=== PATIENT | male | born 1975 | race American Indian/Alaskan Native ===

== ENCOUNTER 2018-10-01 08:25 | Emergency (ER) | payer OTHER ==
--- NOTE | 2018-10-01 09:18 | Emergency Department Report ---
ED Dysuria HPI - HPI Chief Complaint: Urogenital-Male Stated Complaint: BLOOD IN URINE Time Seen by Provider: 10/01/18 09:04 Duration: 2 Days Severity: Mild Symptoms: Dysuria: No, Frequency: No, Suprapubic Pain: No, Flank Pain: No, Fever: No, Hematuria: Yes, Abdominal Pain: No, Previous UTI's: No Other History: 43 yo with 2 day hx hematuria. has had kidney stones in the past but they presented with pain. pt reports some diarrhea. no n/v. no pain. no penile dc. afebrile, ambulatory and in no acute distress. ED Review of Systems ROS: Stated complaint: BLOOD IN URINE Other details as noted in HPI Comment: All other systems reviewed and negative Constitutional: denies: chills Eyes: denies: eye pain ENT: denies: ear pain Respiratory: denies: cough Cardiovascular: denies: orthopnea Endocrine: denies: flushing Gastrointestinal: as per HPI, diarrhea. denies: nausea, vomiting Genitourinary: as per HPI, hematuria. denies: discharge Musculoskeletal: denies: back pain Skin: denies: rash Neurological: denies: weakness Psychiatric: denies: anxiety Hematological/Lymphatic: denies: easy bleeding ED Past Medical Hx - Past Medical History Previous Medical History?: Yes Hx Hypertension: Yes Additional medical history: k stones - Medications Home Medications: Home Medications Medication Instructions Recorded Confirmed Last Taken Type Ciprofloxacin HCl [Cipro] 500 mg PO BID #10 tablet 10/01/18 Unknown Rx traMADol [Ultram] 50 mg PO Q6HR PRN #10 tablet 10/01/18 Unknown Rx Dysuria Exam - Exam General: Vital signs noted. No distress. Alert and acting appropriately. Exam: Yes Moist Mucous Membranes, No CVA Tenderness, No Abdominal Tenderness, No Rigidity or Guarding ED Course Vital Signs 10/01/18 08:27 Temperature 98.6 F Pulse Rate 75 Respiratory 16 Rate Blood Pressure 160/97 O2 Sat by Pulse 100 Oximetry ED Medical Decision Making - Lab Data Result diagrams: 10/01/18 Unknown 10/01/18 Unknown - Radiology Data Radiology results: report reviewed cyst. stone in l kidney. no hydro - Medical Decision Making ua noted ct noted no penile discharge no pain no n/v mild diarrhea IVF rocephin and azithromycin dc home on bactrim and urology follow up Labs 10/01/18 10/01/18 10/01/18 Unknown Unknown Unknown WBC 8.3 RBC 5.12 H Hgb 15.8 H Hct 47.1 H MCV 92 MCH 31 MCHC 34 RDW 14.5 Plt Count 184 Sodium 138 Potassium 4.6 Chloride 101.5 Carbon Dioxide 26 Anion Gap 15 BUN 12 Creatinine 1.0 Estimated GFR > 60 BUN/Creatinine Ratio 12 Glucose 96 Calcium 9.5 Urine Color Yellow Urine Turbidity Slightly-cloudy Urine pH 6.0 Ur Specific [place] 1.012 Urine Protein <15 mg/dl Urine Glucose (UA) Neg Urine Ketones Neg Urine Blood Lg Urine Nitrite Neg Urine Bilirubin Neg Urine Urobilinogen 2.0 Ur Leukocyte Esterase Neg Urine WBC (Auto) 34.0 H Urine RBC (Auto) > 182.0 U Epithel Cells (Auto) 1.0 - Differential Diagnosis ro kidney stone Critical care attestation.: If time is entered above; I have spent that time in minutes in the direct care of this critically ill patient, excluding procedure time. ED Disposition Clinical Impression: Renal cyst, Hematuria, Cystitis Disposition: TO HOME OR SELFCARE Is pt being admited?: No Does the pt Need Aspirin: No Condition: Stable Additional Instructions: HYDRATE WELL WITH WATER MEDS ORDERED TODAY FOLLOW UP WITH UROLOGY REFERRAL BELOW DIET TOLERATED ACTIVITY TOLERATED SAFE SEX MOTRIN OR TYLENOL FOR MILD PAIN Prescriptions: Ciprofloxacin HCl [Cipro] 500 mg PO BID #10 tablet traMADol [Ultram] 50 mg PO Q6HR PRN #10 tablet PRN Reason: Pain Referrals: DAHIANA SANTIAGO [Primary Care Provider] - 3-5 Days TANI PANDA MD [Staff Physician] - 3-5 Days Time of Disposition: 11:24
[2018-10-01 09:54] LABS: Hematocrit 47.1 % (35.5-45.6); Hemoglobin 15.8 gm/dl (11.8-15.2); Mean Corpuscular HGB Conc 34 % (32-34); Mean Corpuscular Volume 92 fl (84-94); Platelet Count 184 K/mm3 (140-440); Red Blood Count 5.12 M/mm3 (3.65-5.03); Red Cell Distribution Width 14.5 % (13.2-15.2)
[2018-10-01 10:01] LABS: Bilirubin,Urine NEG (Negative); Blood,Urine LG (Negative); Color,Urine Yellow (Yellow); Protein,Urine <15 mg/dL mg/dL (Negative)
[2018-10-01 10:05] LABS: RBC,Urine > 182.0 /HPF (0.0-6.0)
[2018-10-01 10:06] LABS: BUN/Creatinine Ratio 12; Blood Urea Nitrogen 12 mg/dL (9-20); Calcium 9.5 mg/dL (8.4-10.2); Hemolysis Index 42
[2018-10-01] MEDS ORDERED: NACL 0.9% 1000 ML 1,000 ML IV ONE (10:11)
[2018-10-01] MEDS ORDERED: ROCEPHIN/NS 1 GM/50 ML 1 GM/50 ML BAG IV ONE (10:14)
[2018-10-01] MEDS ORDERED: NACL 0.9% 1000 ML 1,000 ML ONE (10:42)
[2018-10-01] MEDS ORDERED: ROCEPHIN IM ONE (10:55)
[2018-10-01] MEDS ORDERED: NACL 0.9% 50 ML ONE (10:56)
--- NOTE | 2018-10-01 11:21 | Cat Scan Report ---
FINAL REPORT EXAM: CT ABDOMEN PELVIS WO CON HISTORY: flank pain TECHNIQUE: Noncontrast CT of the abdomen and pelvis performed. No IV or gastrointestinal contrast w as administered. Axial images and coronal and sagittal reformatted images were obtained. PRIORS: None. FINDINGS: There is a punctate nonobstructing left intrarenal calculus. There is no hydronephrosis or evidence f or acute obstructive uropathy. There is a 2 cm low-density left renal lesion which is not definitivel y characterized but most likely a small cyst. Within the limitations of a non-enhanced study, the visualized liver, spleen, pancreas, adrenal gland s and right kidney demonstrate no significant abnormalities. There is no abdominal aortic aneurysm. There is no evidence of intestinal obstruction. The appendix is normal. There are no abnormal fluid collections seen. There is no free intraperitoneal air. The bladder is unremarkable. There is no abnormal pelvic mass or fluid collections seen. IMPRESSION: There is a punctate nonobstructing left intrarenal calculus. There is no hydronephrosis or evidence f or acute obstructive uropathy. 2 cm low-density left renal lesion is not definitively characterized but probably is a small cyst.
[2018-10-01] MEDS ORDERED: ZITHROMAX PO ONE (11:23)
[2018-10-01] MEDS ORDERED: ZITHROMAX ONE (11:41)
[2018-10-01 15:23] VITALS: BP 160/97
== END 2018-10-01 12:06 | disposition home or self-care (01) ==
LOC: ED 08:25
DX: N30.01 Acute cystitis with hematuria (principal); N28.1 Cyst of kidney, acquired; I10 Essential (primary) hypertension; Z91.013 Allergy to seafood
CPT/HCPCS: 36415; 74176; 80048; 81001; 85027; 99283; J0696; J7030; 96365

== ENCOUNTER 2018-11-07 11:58 | Emergency (ER) | payer OTHER ==
[2018-11-07 12:06] VITALS: BP 163/101
[2018-11-07] MEDS ORDERED: NACL 0.9% 1000 ML 1,000 ML IV ONE (12:10)
[2018-11-07] MEDS ORDERED: ZOFRAN IV ONE (12:10)
--- NOTE | 2018-11-07 12:15 | Emergency Department Report ---
Blank Doc - Documentation Documentation: 43 y/o male seen at [facility] yesterday dx wtih viral gastroenteritis pre sents to ED "per recommendation of his PCP not seen today" for continued N/V/D and adominal pain
[2018-11-07 12:26] LABS: Basophils # (Auto) 0.1 K/mm3 (0.0-0.1); Basophils % (Auto) 0.9 % (0.0-1.8); Eosinophils # (Auto) 0.1 K/mm3 (0.0-0.4); Eosinophils % (Auto) 0.6 % (0.0-4.3); Hematocrit 41.7 % (35.5-45.6); Hemoglobin 14.3 gm/dl (11.8-15.2); Lymphocytes # (Auto) 2.3 K/mm3 (1.2-5.4); Lymphocytes % (Auto) 19.8 % (13.4-35.0); Mean Corpuscular HGB Conc 34 % (32-34); Mean Corpuscular Volume 91 fl (84-94); Monocytes # (Auto) 0.7 K/mm3 (0.0-0.8); Monocytes % (Auto) 6.1 % (0.0-7.3); Platelet Count 247 K/mm3 (140-440); Red Cell Distribution Width 14.3 % (13.2-15.2)
[2018-11-07 12:49] LABS: Alanine Aminotransferase 21 units/L (7-56); Albumin 4.9 g/dL (3.9-5); BUN/Creatinine Ratio 18; Blood Urea Nitrogen 16 mg/dL (9-20); Calcium 9.7 mg/dL (8.4-10.2); Hemolysis Index 49
[2018-11-07 12:51] LABS: Bilirubin,Direct < 0.2 mg/dL (0-0.2)
--- NOTE | 2018-11-07 13:33 | Emergency Department Report ---
ED Abdominal Pain HPI - General Chief Complaint: Abdominal Pain Stated Complaint: ABD PAIN Time Seen by Provider: 11/07/18 12:09 Source: patient Mode of arrival: Ambulatory Limitations: No Limitations - History of Present Illness Initial Comments: Pt is a 43 yo male who presents to the ED with c/o N/V/D that began yesterday morning. He states he has generalized abdominal pain. He describes the pain as an aching. The patient was seen at [facility] for these symptoms and was diagnosed with gastroenteritis. He has a sick contact with similar sx. He was given zofran and percocet from [facility] and states that he still does not feel better. He denies any fever, hematochezia, hematemesis, or urinary sx. Severity scale (0 -10): 10 - Related Data Previous Rx's Medication Instructions Recorded Last Taken Type Ciprofloxacin HCl [Cipro] 500 mg PO BID #10 tablet 10/01/18 Unknown Rx traMADol [Ultram] 50 mg PO Q6HR PRN #10 tablet 10/01/18 Unknown Rx Allergies Allergy/AdvReac Type Severity Reaction Status Date / Time shrimp Allergy Swelling Verified 11/07/18 11:59 ED Review of Systems ROS: Stated complaint: ABD PAIN Other details as noted in HPI Comment: All other systems reviewed and negative ED Past Medical Hx - Past Medical History Hx Hypertension: Yes Additional medical history: k stones - Social History Smoking Status: Current Every Day Smoker Substance Use Type: None - Medications Home Medications: Home Medications Medication Instructions Recorded Confirmed Last Taken Type Ciprofloxacin HCl [Cipro] 500 mg PO BID #10 tablet 10/01/18 Unknown Rx traMADol [Ultram] 50 mg PO Q6HR PRN #10 tablet 10/01/18 Unknown Rx ED Physical Exam - General Limitations: No Limitations General appearance: alert, in no apparent distress - Head Head exam: Present: atraumatic, normocephalic - Eye Eye exam: Present: normal appearance - ENT ENT exam: Present: mucous membranes moist - Respiratory Respiratory exam: Present: normal lung sounds bilaterally. Absent: respiratory distress, wheezes, rales, rhonchi, stridor, chest wall tenderness, accessory muscle use, decreased breath sounds, prolonged expiratory - Cardiovascular Cardiovascular Exam: Present: regular rate, normal rhythm, normal heart sounds. Absent: systolic murmur, rubs, gallop - GI/Abdominal GI/Abdominal exam: Present: soft, distended (mildly), normal bowel sounds. Absent: tenderness, guarding, rebound, rigid - Neurological Exam Neurological exam: Present: alert, oriented X3 - Psychiatric Psychiatric exam: Present: normal affect, normal mood ED Course Vital Signs 11/07/18 11/07/18 11/07/18 12:03 12:05 13:11 Temperature 97.6 F Pulse Rate 70 Respiratory 16 16 Rate Blood Pressure 163/101 O2 Sat by Pulse 99 Oximetry ED Medical Decision Making - Lab Data Result diagrams: 11/07/18 12:16 11/07/18 12:16 Laboratory Results - last 24 hr 11/07/18 11/07/18 12:16 12:16 WBC 11.4 H RBC 4.60 Hgb 14.3 Hct 41.7 MCV 91 MCH 31 MCHC 34 RDW 14.3 Plt Count 247 Lymph % (Auto) 19.8 Butts % (Auto) 6.1 Eos % (Auto) 0.6 Baso % (Auto) 0.9 Lymph # 2.3 Butts # 0.7 Eos # 0.1 Baso # 0.1 Seg Neutrophils % 72.6 H Seg Neutrophils # 8.3 H Sodium 138 Potassium 3.7 Chloride 98.2 Carbon Dioxide 25 Anion Gap 19 BUN 16 Creatinine 0.9 Estimated GFR > 60 BUN/Creatinine Ratio 18 Glucose 95 Calcium 9.7 Total Bilirubin 0.70 Direct Bilirubin < 0.2 Indirect Bilirubin 0.5 AST 24 ALT 21 Alkaline Phosphatase 59 Total Protein 8.7 H Albumin 4.9 Albumin/Globulin Ratio 1.3 Lipase 80 H - Radiology Data Radiology results: report reviewed, image reviewed CT abd/pelvis with IV contrast: small cyst on the left kidney, tiny non obstructing stones in the bilateral kidneys, otherwise normal - Medical Decision Making Pt presents with N/V/D that began 2 days ago. evaluated at [facility] for the same sx and was given pain medication and nausea medication. CT abd/pelvis with no acute findings besides a small kidney cyst and very tiny stones present in the bilateral kidneys. Advised pt to stay well hydrated and eat a bland diet. Ad vised pt to continue using medications he was already prescribed. Discussed with pt to follow up with PCP in the next 2-3 days. Advised pt to follow up with GI doctor if continues to have N/V/D, generalized abd pain. Return to ED if any new or worsening symptoms. Critical care attestation.: If time is entered above; I have spent that time in minutes in the direct care of this critically ill patient, excluding procedure time. ED Disposition Clinical Impression: Nausea vomiting and diarrhea Abdominal pain Qualifiers: Abdominal location: unspecified location Qualified Code(s): R10.9 - Unspecified abdominal pain Disposition: TO HOME OR SELFCARE Is pt being admited?: No Does the pt Need Aspirin: No Condition: Stable Instructions: Acute Nausea and Vomiting (ED), Abdominal Pain (ED) Additional Instructions: Follow up with your primary care doctor in the next 2-3 days. Follow up with GI doctor if continue to have abdominal pain. Keep well hydrated. Eat a bland diet. Referrals: [facility] [Other] - 2-3 Days LILLIANA BARTON MD [Staff Physician] - 3-5 Days Time of Disposition: 14:46 Print Language: MALTESE
[2018-11-07] MEDS ORDERED: TORADOL IV ONE (13:40)
--- NOTE | 2018-11-07 14:23 | Cat Scan Report ---
CT ABDOMEN PELVIS WITH CONTRAST: HISTORY: Generalized abdominal pain. Nausea, vomiting and diarrhea. COMPARISON: 10/01/18. TECHNIQUE: Helical CT in 1.25mm intervals following IV contrast. Sagittal and coronal reconstructions. FINDINGS: Lung bases: Normal. Liver: Normal. Biliary system: Normal. Pancreas: Normal. Spleen: Normal. Kidneys/ureters/bladder: The kidneys are normal size and position. A 2 cm cyst is identified at the superior pole of the left kidney. There appear to be tiny nonobstructing calyceal stones at the inferior pole of both kidneys. The ureters and bladder are unremarkable. Adrenal glands: Normal. Aorta: Normal. Intestines: Normal. Appendix: Normal. Pelvic viscera: Normal. Ascites: None. Adenopathy: None. Musculoskeletal: Normal. IMPRESSION: No acute abdominal process is identified. Tiny bilateral renal calyceal stones. Left renal cyst.
== END 2018-11-07 14:58 | disposition home or self-care (01) ==
LOC: ED 11:58
DX: R10.9 Unspecified abdominal pain (principal); R11.2 Nausea with vomiting, unspecified; R19.7 Diarrhea, unspecified; I10 Essential (primary) hypertension; F17.200 Nicotine dependence, unspecified, uncomplicated
CPT/HCPCS: 36415; 74177; 80048; 80076; 83690; 85025; 96361; 96374; 96375; 99284; J1885; J2405; J7030; Q9967

== ENCOUNTER 2018-12-13 10:24 | Day surgery (SDC) | payer OTHER ==
[~2018-12-13 10:24] MED LIST: DIPRIVAN 10 MG/ML IV ONE; NACL 0.9% 1000 ML 1,000 ML IV SCH
--- NOTE | 2018-12-13 12:11 | Short Stay Summary ---
Short Stay Documentation Date of service: 12/13/18 Narrative H&P: Mr Butler is a 43 yo male who presents for EGD 2/2 abdominal pain, dysphagia, and reflux. Dysphagia and reflux sx's have improved with PPI. no weight loss, or gi bleeding. - History Past Medical History: other (see clinic note) Past Surgical History: No surgical history Social history: no significant social history - Allergies and Medications Current Medications: Allergies shrimp Allergy (Verified 11/07/18 11:59) Swelling Home Medications Medication Instructions Recorded Confirmed Last Taken Type Lisinopril/Hydrochlorothiazide 20 mg PO DAILY 12/12/18 12/13/18 12/13/18 History amLODIPine 1 tab PO DAILY 12/12/18 12/13/18 12/13/18 History Prilosec 20 mg PO DAILY 12/13/18 12/13/18 12/10/18 History Active Medications Sodium Chloride (Nacl 0.9% 1000 Ml) 1,000 mls @ 50 mls/hr IV DIRECT AFSANEH Last Admin: 12/13/18 11:04 Dose: 50 mls/hr Documented by: - Physical exam General appearance: no acute distress Lungs: Clear to auscultation Heart: Regular rate, Normal S1, Normal S2 Gastrointestinal: normal Extremities: No edema - Brief post op/procedure progress note Date of procedure: 12/13/18 Pre-op diagnosis: Abdominal pain, GERD Post-op diagnosis: same (Gastritis, biopsied.) Procedure: EGD with biopsies Anesthesia: MAC Findings: Mild erythematous mucosa in gastric body. Biopsied obtained to rule out H pylori. otherwise normal upper endoscopy Surgeon: ROBYN ROSE Estimated blood loss: minimal Pathology: list (Senthil Cuevas - gastric biopsies) Specimen disposition: to lab Condition: stable - Disposition Condition at discharge: Good Disposition: DC-01 TO HOME OR SELFCARE Short Stay Discharge Plan Follow up with: JERICA DUKE MD [Primary Care Provider] - 7 Days
--- NOTE | 2018-12-13 12:15 | Operative Report ---
Operative Report Operative Report: Esophagogastroduodenoscopy Procedure Note with Biopsies Date of procedure: 12/13/2018 Endoscopist: Montrell Boggs Pre-op diagnosis: Post-op diagnosis: Anesthesia: MAC Complications: No immediate complications Estimated blood loss: minimal Procedure: After consent was obtained, the patient was placed in the left lateral decubitus position. The fujinon endoscope was inserted into the patient's mouth under direct vision, and advanced into the 2nd portion of the duodenum without difficulty. The patient tolerated the procedure well. The views of the mucosa were good. Patient's vital signs were monitored continuously throughout the procedure. Findings: The esophagus appeared normal. There was mild erythematous mucosa in the body of the stomach. Otherwise, the stomach appeared normal. Biopsies were obtained to rule out H pylori. The duodenum appeared normal. Impression: 1. Mild erythematous mucosa in the gastric body. Biopsies obtained. Otherwise, unremarkable upper endoscopy. Recommendations: -follow-up pathology -avoid nsaid medication -continue anti-acid medication daily
[2018-12-13] MEDS ORDERED: WATER FOR IRRIG STERILE IR ONE (12:17)
[2018-12-13 12:55] VITALS: BP 118/81
== END 2018-12-13 10:25 | disposition home or self-care (01) ==
LOC: GIO 10:24
PROVIDERS: ATTEND Internal Medicine Gastroenterology
DX: K29.50 Unspecified chronic gastritis without bleeding (principal); F17.210 Nicotine dependence, cigarettes, uncomplicated; I10 Essential (primary) hypertension; Z79.899 Other long term (current) drug therapy; Z79.01 Long term (current) use of anticoagulants; Z88.8 Allergy status to other drugs, medicaments and biological substances
CPT/HCPCS: 43239; 88305; 88342; J2704; J7030

== ENCOUNTER 2019-01-24 05:47 | Emergency (ER) | payer OTHER ==
[2019-01-24 06:22] LABS: Basophils % (Auto) 0.3 % (0.0-1.8); Eosinophils % (Auto) 0.4 % (0.0-4.3); Hematocrit 39.6 % (35.5-45.6); Hemoglobin 13.5 gm/dl (11.8-15.2); Lymphocytes % (Auto) 20.3 % (13.4-35.0); Mean Corpuscular HGB Conc 34 % (32-34); Mean Corpuscular Volume 93 fl (84-94); Monocytes # (Auto) 0.5 K/mm3 (0.0-0.8); Monocytes % (Auto) 5.3 % (0.0-7.3); Platelet Count 216 K/mm3 (140-440); Red Blood Count 4.28 M/mm3 (3.65-5.03)
[2019-01-24 06:39] LABS: Albumin 5.1 g/dL (3.9-5); Calcium 10.2 mg/dL (8.4-10.2)
[2019-01-24] MEDS ORDERED: NACL 0.9% 1000 ML 1,000 ML IV ONE (07:18)
[2019-01-24 07:47] VITALS: BP 126/72
--- NOTE | 2019-01-24 08:03 | Emergency Department Report ---
Vomiting/Diarrhea - HPI Chief Complaint: Nausea/Vomiting/Diarrhea Stated Complaint: VOMITING,WEAK Time Seen by Provider: 01/24/19 08:02 Severity: mild Nausea/Vomiting Severity: Mild Diarrhea Severity: None Pain Severity: None Symptoms: No Watery Diarrhea, No Bloody diarrhea, No Fever, No Able to Tolerate Fluids, No Recent Unusual Foods, No Recent Untreated Water, No Recent use of Antibiotics, No Family w/ Similar Symptoms, No Contacts w/ Similar Symptoms, No Rash, No Hematuria, No Recent URI Symptoms Other History: Patient is a 43-year-old male who comes to the ER today with nausea and vomiting. He states that he was seen over a week ago at [facility] for the same symptoms. They told him it was related to his marijuana use and that he should stop smoking marijuana. Patient states that he has had no Nausea and vomiting. He denies fever. He denies pain. He denies any diarrhea. He is actively vomiting on exam. He has come in by his and mother. Pt states that [place] they told him that he was dehydrated and his kidney function was affected. They sent him home with some cream he cannot recall the name of. He states that it has not helped. Pt is on no home medications other than the cream that was given to him at [facility]. Review the MR indicates the patient should be on blood pressure medicine. ED Review of Systems ROS: Stated complaint: VOMITING,WEAK Other details as noted in HPI Comment: All other systems reviewed and negative ED Past Medical Hx - Past Medical History Previous Medical History?: Yes Hx Hypertension: Yes Additional medical history: k stones - Surgical History Past Surgical History?: No - Family History Family history: no significant - Social History Smoking Status: Current Every Day Smoker - Medications Home Medications: Home Medications Medication Instructions Recorded Confirmed Last Taken Type Lisinopril/Hydrochlorothiazide 20 mg PO DAILY 12/12/18 12/13/18 12/13/18 History amLODIPine 1 tab PO DAILY 12/12/18 12/13/18 12/13/18 History Prilosec 20 mg PO DAILY 12/13/18 12/13/18 12/10/18 History Capsaicin 0.075% [Zostrix Hp 1 applicatio TP TID #1 tube 01/24/19 Unknown Rx 0.075%] Ondansetron [Zofran Odt] 4 mg PO Q8HR PRN #10 tab.padmajadis 01/24/19 Unknown Rx Vomiting Diarrhea Exam - Exam General: Vital signs noted. No distress. Alert and acting appropriately. HEENT: No Pharyngeal Erythema Neck: No Adenopathy Lungs: Yes Clear Lung Sounds, Yes Good Air Exchange Heart exam: Regular: Yes, Tachycardia: No Abdomen: Tenderness: No, Peritoneal Signs: No, Distention: No, Hyperactive Bowel sounds: No Skin exam: Rash: No Neurologic: Alert and oriented, no deficits. Musculoskeletal: Unremarkable. Exam: Head. Head exam: Present: atraumatic, normocephalic. - Eye. Eye exam: Present: normal appearance, EOMI. Absent: nystagmus. - ENT. ENT exam: Present: normal exam, normal orophraynx, mucous membranes moist, normal external ear exam, no lymphadenopathy. - Neck. Neck exam: Present: normal inspection, full ROM. Absent: tenderness, meningismus. - Respiratory. Respiratory exam: Present: normal lung sounds bilaterally. Absent: respiratory distress, wheezes, rales, rhonchi, stridor, chest wall tenderness, accessory muscle use, decreased breath sounds, prolonged expiratory. - Cardiovascular. Cardiovascular Exam: Present: regular rate, normal rhythm, normal heart sounds. Absent: bradycardia, tachycardia, irregular rhythm, systolic murmur, diastolic murmur, rubs, gallop, JVD, edema. - GI/Abdominal. GI/Abdominal exam: Present: soft, non tender on light and deep palpation. Absent: distended, tenderness, guarding, rebound, rigid, pulsatile mass. - Rectal. Rectal exam: Present: deferred. - Extremities Exam. Extremities exam: Present: normal inspection, full ROM, other (2+ pulses noted in the bilateral upper extremities. Bilateral lower extremities with 2+ DP bilateral. Full ROM. Absent: calf tenderness. - Back Exam. Back exam: Present: normal inspection, full ROM. Absent: tenderness, CVA tenderness (R), CVA tenderness (L), paraspinal tenderness, vertebral tenderness. - Neurological Exam. Neurological exam: Present: alert, oriented X3, normal gait, other (Extraocular movements intact. Tongue midline. No facial droop. Facial sensation intact to light touch in the V1, V2, V3 distribution bilaterally. 5 and 5 strength in 4 extremities.. Sensation is intact to light touch in 4 extremities.). Absent: motor sensory deficit. - Psychiatric. Ps ychiatric exam: normal affect and mood. - Skin. Skin exam: Present: warm, dry, intact, normal color. Absent: rash ED Course Vital Signs 01/24/19 01/24/19 05:50 07:38 Temperature 97.4 F L 98.1 F Pulse Rate 81 69 Respiratory 18 18 Rate Blood Pressure 137/82 Blood Pressure 126/72 [Right] O2 Sat by Pulse 100 Oximetry ED Medical Decision Making - Lab Data Result diagrams: 01/24/19 06:03 01/24/19 06:03 - Medical Decision Making Lab Results 01/24/19 01/24/19 01/24/19 Range/Units 06:03 06:03 09:27 WBC 9.7 (4.5-11.0) K/mm3 RBC 4.28 (3.65-5.03) M/mm3 Hgb 13.5 (11.8-15.2) gm/dl Hct 39.6 (35.5-45.6) % MCV 93 (84-94) fl MCH 32 (28-32) pg MCHC 34 (32-34) % RDW 14.0 (13.2-15.2) % Plt Count 216 (140-440) K/mm3 Lymph % (Auto) 20.3 (13.4-35.0) % [place] % (Auto) 5.3 (0.0-7.3) % Eos % (Auto) 0.4 (0.0-4.3) % Baso % (Auto) 0.3 (0.0-1.8) % Lymph # 2.0 (1.2-5.4) K/mm3 [place] # 0.5 (0.0-0.8) K/mm3 Eos # 0.0 (0.0-0.4) K/mm3 Baso # 0.0 (0.0-0.1) K/mm3 Seg Neutrophils % 73.7 H (40.0-70.0) % Seg Neutrophils # 7.2 (1.8-7.7) K/mm3 Sodium 134 L (137-145) mmol/L Potassium 4.6 (3.6-5.0) mmol/L Chloride 94.1 L (98-107) mmol/L Carbon Dioxide 26 (22-30) mmol/L Anion Gap 19 mmol/L BUN 25 H (9-20) mg/dL Creatinine 1.7 H (0.8-1.5) mg/dL Estimated GFR 53 ml/min BUN/Creatinine Ratio 15 % Glucose 132 H (75-100) mg/dL Calcium 10.2 (8.4-10.2) mg/dL Total Bilirubin 0.50 (0.1-1.2) mg/dL AST 22 (5-40) units/L ALT 21 (7-56) units/L Alkaline Phosphatase 68 (35-129) units/L Total Protein 9.0 H (6.3-8.2) g/dL Albumin 5.1 H (3.9-5) g/dL Albumin/Globulin Ratio 1.3 % Urine Color Yellow (Yellow) Urine Turbidity Clear (Clear) Urine pH 6.0 (5.0-7.0) Ur Specific Henry 1.024 (1.003-1.030) Urine Protein <15 mg/dl (Negative) mg/dL Urine Glucose (UA) Neg (Negative) mg/dL Urine Ketones Neg (Negative) mg/dL Urine Blood Neg (Negative) Urine Nitrite Neg (Negative) Urine Bilirubin Neg (Negative) Urine Urobilinogen < 2.0 (<2.0) mg/dL Ur Leukocyte Esterase Neg (Negative) Urine WBC (Auto) 1.0 (0.0-6.0) /HPF Urine RBC (Auto) 2.0 (0.0-6.0) /HPF U Epithel Cells (Auto) 1.0 (0-13.0) /HPF Urine Mucus 1+ /HPF Urine Opiates Screen Urine Methadone Screen Ur Barbiturates Screen Ur Phencyclidine Scrn Ur Amphetamines Screen U Benzodiazepines Scrn Urine Cocaine Screen U Marijuana (THC) Screen Drugs of Abuse Note 01/24/19 Range/Units 09:27 WBC (4.5-11.0) K/mm3 RBC (3.65-5.03) M/mm3 Hgb (11.8-15.2) gm/dl Hct (35.5-45.6) % MCV (84-94) fl MCH (28-32) pg MCHC (32-34) % RDW (13.2-15.2) % Plt Count (140-440) K/mm3 Lymph % (Auto) (13.4-35.0) % [place] % (Auto) (0.0-7.3) % Eos % (Auto) (0.0-4.3) % Baso % (Auto) (0.0-1.8) % Lymph # (1.2-5.4) K/mm3 [place] # (0.0-0.8) K/mm3 Eos # (0.0-0.4) K/mm3 Baso # (0.0-0.1) K/mm3 Seg Neutrophils % (40.0-70.0) % Seg Neutrophils # (1.8-7.7) K/mm3 Sodium (137-145) mmol/L Potassium (3.6-5.0) mmol/L Chloride (98-107) mmol/L Carbon Dioxide (22-30) mmol/L Anion Gap mmol/L BUN (9-20) mg/dL Creatinine (0.8-1.5) mg/dL Estimated GFR ml/min BUN/Creatinine Ratio % Glucose (75-100) mg/dL Calcium (8.4-10.2) mg/dL Total Bilirubin (0.1-1.2) mg/dL AST (5-40) units/L ALT (7-56) units/L Alkaline Phosphatase (35-129) units/L Total Protein (6.3-8.2) g/dL Albumin (3.9-5) g/dL Albumin/Globulin Ratio % Urine Color (Yellow) Urine Turbidity (Clear) Urine pH (5.0-7.0) Ur Specific Henry (1.003-1.030) Urine Protein (Negative) mg/dL Urine Glucose (UA) (Negative) mg/dL Urine Ketones (Negative) mg/dL Urine Blood (Negative) Urine Nitrite (Negative) Urine Bilirubin (Negative) Urine Urobilinogen (<2.0) mg/dL Ur Leukocyte Esterase (Negative) Urine WBC (Auto) (0.0-6.0) /HPF Urine RBC (Auto) (0.0-6.0) /HPF U Epithel Cells (Auto) (0-13.0) /HPF Urine Mucus /HPF Urine Opiates Screen Presumptive negative Urine Methadone Screen Presumptive negative Ur Barbiturates Screen Presumptive negative Ur Phencyclidine Scrn Presumptive negative Ur Amphetamines Screen Presumptive negative U Benzodiazepines Scrn Presumptive negative Urine Cocaine Screen Presumptive negative U Marijuana (THC) Screen Presumptive positive Drugs of Abuse Note Disclamer Vital Signs 01/24/19 01/24/19 05:50 07:38 Temperature 97.4 F L 98.1 F Pulse Rate 81 69 Respiratory 18 18 Rate Blood Pressure 137/82 Blood Pressure 126/72 [Right] O2 Sat by Pulse 100 Oximetry Labs noted Cr 1.7 - pt states he was told at [facility] it was not normal UDS noted family and pt educated on TCH use. pt seen at prior hosp and states he has had no THC since but his UDS is pos for THC 2L NS zofan IV bengay topical VSS on dc pt is taking po, ambulatory and with stable VS. dc home with instructions to avoid TCH. He has been given symptomatic treatment for home use and referred to PCP. He requested pain med on dc but this request was declined. - Differential Diagnosis THC induced N/V Critical care attestation.: If time is entered above; I have spent that time in minutes in the direct care of this critically ill patient, excluding procedure time. ED Disposition Clinical Impression: Tetrahydrocannabinol (THC) use disorder, mild, abuse, Nausea and vomiting in adult, Kidney dysfunction Disposition: DC-01 TO HOME OR SELFCARE Is pt being admited?: No Does the pt Need Aspirin: No Condition: Stable Instructions: Acute Nausea and Vomiting (ED) Additional Instructions: DIET TOLERATED MEDS ORDERED TODAY IN ER FOLLOW INSTRUCTIONS ON THE BOTTLE FOLLOW UP PCP WITHIN 48 HOURS TO ENSURE YOU ARE GETTING BETTER ACTIVITY TOLERATED MOTRIN OR TYLENOL FOR PAIN OR FEVER RETURN TO THE ER FOR WORSENING SYMPTOMS NOT RELIEVED BY YOUR MEDICATIONS. avoid marijuana Prescriptions: Ondansetron [Zofran Odt] 4 mg PO Q8HR PRN #10 tab.rapdis PRN Reason: Vomiting Capsaicin 0.075% [Zostrix Hp 0.075%] 1 applicatio TP TID #1 tube Referrals: CASIE MON MD [Primary Care Provider] - 3-5 Days Forms: Work/School Release Form(ED) Time of Disposition: 10:44
[2019-01-24] MEDS ORDERED: ZOFRAN IV ONE (08:51)
[2019-01-24] MEDS ORDERED: ZOSTRIX HP TP ONE (09:30)
[2019-01-24 09:37] LABS: Bilirubin,Urine NEG (Negative); Blood,Urine NEG (Negative); Color,Urine Yellow (Yellow); Mucus,Urine 1+ /HPF; Protein,Urine <15 mg/dL mg/dL (Negative); Urobilinogen,Urine < 2.0 mg/dL (<2.0)
[2019-01-24 09:47] LABS: Amphetamine Screen,Urine PRESUMPTIVE NEGATIVE; Benzodiazepines Screen,Urine PRESUMPTIVE NEGATIVE; Cocaine Screen,Urine PRESUMPTIVE NEGATIVE; Methadone Screen,Urine PRESUMPTIVE NEGATIVE; Opiate Screen,Urine PRESUMPTIVE NEGATIVE
[2019-01-24 10:00] LABS: Cannabinoid Screen,Urine PRESUMPTIVE POSITIVE
[2019-01-24] MEDS ORDERED: HALDOL IV ONE (10:46)
== END 2019-01-24 11:03 | disposition home or self-care (01) ==
LOC: ED 05:47
DX: N28.9 Disorder of kidney and ureter, unspecified (principal); F12.10 Cannabis abuse, uncomplicated; R11.2 Nausea with vomiting, unspecified; I10 Essential (primary) hypertension; F17.200 Nicotine dependence, unspecified, uncomplicated; Z91.013 Allergy to seafood
CPT/HCPCS: 36415; 80053; 80307; 81001; 85025; 87086; 96361; 96374; 96375; 99283; J1630; J2405; J7030